=== PATIENT | female | born 1985 | race Two or more races ===

== ENCOUNTER 2020-11-15 07:00 | Day surgery (SDC) | payer OTHER ==
[2020-11-15] MEDS ORDERED: CILOXAN5 ML OTIC (17:20)
[2020-11-15] MEDS ORDERED: ZOFRAN8 MG PO (17:21)
[2020-11-15] MEDS ORDERED: AMOXICILLIN500 M1 PO (17:21)
== END 2020-11-15 19:15 | disposition home or self-care (01) ==
LOC: CIR.AMB 07:00
PROVIDERS: ATTEND Otolaryngology Otology & Neurotology
DX: D36.11 Benign neoplasm of peripheral nerves and autonomic nervous system of face, head, and neck (principal); H90.A11 Conductive hearing loss, unilateral, right ear with restricted hearing on the contralateral side; H70.11 Chronic mastoiditis, right ear; H72.91 Unspecified perforation of tympanic membrane, right ear; Z20.822 Contact with and (suspected) exposure to COVID-19